=== PATIENT | female | born 2000 | race Caucasian/White ===

== ENCOUNTER 2018-09-28 20:08 | Emergency (ER) | payer BC, MEDICAID ==
--- NOTE | 2018-09-28 20:32 | EDM.PDOC ---
ED HPI GENERAL MEDICAL PROBLEM - General Chief Complaint: Head Injury Stated Complaint: HEAD INJURY Time Seen by Provider: 09/28/18 20:08 Source of Information: Reports: Patient History Limitations: Reports: No Limitations - History of Present Illness INITIAL COMMENTS - FREE TEXT/NARRATIVE: 17 y.o.w.cash came to the ed shortly after she was hit by platic tool? on the top her head by accident. No LOC, no Dizziness, no lightheadedness, no N/V/D or any other acute medical issues. Pt noticed a minor tender area at her mid aileen and thought she had a "concussion". 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 History: Social & Family History - Family History Family Medical History: Noncontributory - Caffeine Use Caffeine Use: Reports: None ED ROS GENERAL - Review of Systems Review Of Systems: See Below Constitutional: Reports: No Symptoms HEENT: Reports: No Symptoms Respiratory: Reports: No Symptoms Cardiovascular: Reports: No Symptoms Endocrine: Reports: No Symptoms GI/Abdominal: Reports: No Symptoms : Reports: No Symptoms Musculoskeletal: Reports: No Symptoms Skin: Reports: Lumps (minimal tenderness) Neurological: Reports: No Symptoms Psychiatric: Reports: No Symptoms Hematologic/Lymphatic: Reports: No Symptoms Immunologic: Reports: No Symptoms ED EXAM, HEAD INJURY - Physical Exam Exam: See Below Exam Limited By: No Limitations General Appearance: Alert, WD/WN, Mild Distress Head: Atraumatic, Normocephalic Eyes: Bilateral Eye: Normal Inspection Ears: Normal External Exam, Normal Canal, Hearing Grossly Normal, Normal TMs Nose: Normal Inspection, Normal Mucousa, No Blood Throat/Mouth: Normal Inspection, Normal Lips, Normal Teeth, Normal Gums, Normal Voice, No Airway Compromise Neck: Non-Tender, Full Range of Motion, Normal Alignment, Normal Inspection Respiratory: No Respiratory Distress, Lungs Clear, Normal Breath Sounds, No Accessory Muscle Use, Chest Non-Tender Cardiovascular: Normal Peripheral Pulses, Regular Rate, Rhythm, No Edema, No Gallop, No JVD, No Murmur GI/Abdominal Exam: Normal Bowel Sounds, Soft, Non-Tender, No Organomegaly, No Distention, No Abnormal Bruit, No Mass, Pelvis Stable (Female) Exam: Deferred Rectal (Female) Exam: Deferred Back Exam: Normal Inspection, Full Range of Motion Extremities: Normal Inspection, Normal Range of Motion, Non-Tender, No Pedal Edema, Normal Capillary Refill 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 on the top her head by accident. No LOC, no Dizziness, no lightheadedness, no N/V/D or any other acute medical issues. Pt noticed a minor tender area at her mid aileen and thought she had a "concussion". BP 116/85 Pulse ox 99% on RA Temp 98F RR 16 Pulse 92 PE: WNWD W F with a scalp hematoma, minimal. No open wound Impression: Scalp hematoma, minimal Tx: None in the ED Reexam: Pt did fine in the ed, refused to file for workman's comp Plan: D/C with instructions Departure - Departure Time of Disposition: 20:30 Disposition: Home, Self-Care 01 Condition: Good Clinical Impression: Scalp hematoma Qualifiers: Encounter type: initial encounter Qualified Code(s): S00.03XA - Contusion of scalp, initial encounter - Discharge Information Instructions: Head Injury, Adult, [id number] Referrals: Earle Tapia MD [Primary Care Provider] - Forms: ED Department Discharge Additional Instructions: Please apply ICE to the affected area, please take motrin for pain, please f/u, come back if your symptoms get worse acutely
== END 2018-09-28 20:40 | disposition home or self-care (01) ==
LOC: FB.ED 20:08
DX: S00.03XA Contusion of scalp, initial encounter (principal); W22.8XXA Striking against or struck by other objects, initial encounter
CPT/HCPCS: 99282

== ENCOUNTER 2019-07-08 23:33 | Emergency (ER) | payer SELFPAY ==
[2019-07-08] MEDS ORDERED: Sodium Chloride 0.9% 10 ML Syringe FLUSH PRN (23:59)
[2019-07-09] MEDS ORDERED: Ondansetron 4 MG/2 ML SDV IVPUSH ONE (00:02)
[2019-07-09] MEDS ORDERED: Sodium Chloride 0.9% 1,000 ML IV SCH (00:15)
[2019-07-09] MEDS ORDERED: Iopamidol 755 Mg/ML 100 ML Bottle IV ONE (00:57)
--- NOTE | 2019-07-09 02:11 | EDM.PDOC ---
ED HPI GENERAL MEDICAL PROBLEM - General Stated Complaint: ABDOMINAL PAIN; NAUSEA; CRAMPS Time Seen by Provider: 07/09/19 00:05 Source of Information: Reports: Patient History Limitations: Reports: No Limitations - History of Present Illness INITIAL COMMENTS - FREE TEXT/NARRATIVE: Patient presented to the ED because of RLQ pain,09/24/ with associated nausea but no vomiting. She denies any changes in bowel movements or urinary symptoms. 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 Denies: Vomiting : Reports: No Symptoms Musculoskeletal: Reports: No Symptoms Skin: Reports: No Symptoms Psychiatric: Reports: No Symptoms ED EXAM, GI/ABD - Physical Exam Exam: See Below Exam Limited By: No Limitations General Appearance: Alert, WD/WN, No Apparent Distress Nose: Normal Inspection, Normal Mucosa Throat/Mouth: Normal Inspection, Normal Lips, Normal Teeth Head: Atraumatic, Normocephalic Neck: Normal Inspection, Supple, Non-Tender, Full Range of Motion Respiratory/Chest: No Respiratory Distress, Lungs Clear, Normal Breath Sounds, No Accessory Muscle Use, Chest Non-Tender Cardiovascular: Normal Peripheral Pulses, Regular Rate, Rhythm, No Edema, No Gallop, No JVD, No Murmur GI/Abdominal Exam: Normal Bowel Sounds, Soft, No Distention, No Abnormal Bruit, Other (tenderness RLQ) Back Exam: Normal Inspection, Full Range of Motion. No: CVA Tenderness (R), CVA Tenderness (L) Extremities: Normal Inspection Course - Vital Signs Text/Narrative:: labs,CT abd/pevis result discussed with patient and with full understanding NS 1 L bolus Zofran 4 mg IV x1 refused pain meds - Orders/Labs/Meds Orders: Active Orders 24 hr Category Date Time Status Abdomen Pelvis w Cont [CT] Stat Exams 07/08/19 23:59 Taken Labs: Laboratory Tests 07/08/19 07/08/19 07/08/19 Range/Units 00:01 00:01 00:01 WBC 8.5 (4.5-12.0) X10-3/uL RBC 4.22 (3.23-5.20) x10(6)uL Hgb 13.7 (11.5-15.5) g/dL Hct 40.3 (30.0-51.3) % MCV 95.5 (80-96) fL MCH 32.5 (27.7-33.6) pg MCHC 34.0 (32.2-35.4) g/dL RDW 11.7 (11.5-15.5) % Plt Count 254 (125-369) X10(3)uL MPV 8.9 (7.4-10.4) fL Neut % (Auto) 67.2 (46-82) % Lymph % (Auto) 24.0 (13-37) % [place] % (Auto) 7.6 (4-12) % Eos % (Auto) 1 (1.0-5.0) % Baso % (Auto) 0 (0-2) % Neut # (Auto) 5.8 (1.6-8.3) # Lymph # (Auto) 2.0 (0.6-5.0) # [place] # (Auto) 0.6 (0.0-1.3) # Eos # (Auto) 0.1 (0.0-0.8) # Baso # (Auto) 0.0 (0.0-0.2) # Sodium 141 (135-145) mmol/L Potassium 3.5 (3.5-5.3) mmol/L Chloride 105 (100-110) mmol/L Carbon Dioxide 28 (21-32) mmol/L BUN 8 (7-18) mg/dL Creatinine 0.8 (0.55-1.02) mg/dL Est Cr Clr Drug Dosing TNP Estimated GFR (MDRD) > 60 (>60) BUN/Creatinine Ratio 10.0 (9-20) Glucose 89 (80-116) mg/dL Calcium 8.9 (8.6-10.2) mg/dL Total Bilirubin 0.4 (0.1-1.3) mg/dL AST 16 (5-25) IU/L ALT 19 (12-36) U/L Alkaline Phosphatase 71 (56-112) IU/L Total Protein 7.5 (6.0-8.0) g/dL Albumin 4.2 (3.5-5.2) g/dL Globulin 3.3 g/dL Albumin/Globulin Ratio 1.3 Amylase 50 (25-115) U/L Lipase 144 (73-393) U/L Urine Color (YELLOW) Urine Appearance (CLEAR) Urine pH (5.0-6.5) Ur Specific [place] (1.010-1.025) Urine Protein (NEGATIVE) mg/dL Urine Glucose (UA) (NORMAL) mg/dL Urine Ketones (NEGATIVE) mg/dL Urine Occult Blood (NEGATIVE) Urine Nitrite (NEGATIVE) Urine Bilirubin (NEGATIVE) Urine Urobilinogen (NEGATIVE) mg/dL Ur Leukocyte Esterase (NEGATIVE) Urine RBC (0-5) Urine WBC (0-5) Ur Squamous Epith Cells (NS,R,O) Urine Bacteria (NS) Urine HCG, Qual (NEGATIVE) 07/08/19 07/08/19 Range/Units 00:20 00:20 WBC (4.5-12.0) X10-3/uL RBC (3.23-5.20) x10(6)uL Hgb (11.5-15.5) g/dL Hct (30.0-51.3) % MCV (80-96) fL MCH (27.7-33.6) pg MCHC (32.2-35.4) g/dL RDW (11.5-15.5) % Plt Count (125-369) X10(3)uL MPV (7.4-10.4) fL Neut % (Auto) (46-82) % Lymph % (Auto) (13-37) % [place] % (Auto) (4-12) % Eos % (Auto) (1.0-5.0) % Baso % (Auto) (0-2) % Neut # (Auto) (1.6-8.3) # Lymph # (Auto) (0.6-5.0) # [place] # (Auto) (0.0-1.3) # Eos # (Auto) (0.0-0.8) # Baso # (Auto) (0.0-0.2) # Sodium (135-145) mmol/L Potassium (3.5-5.3) mmol/L Chloride (100-110) mmol/L Carbon Dioxide (21-32) mmol/L BUN (7-18) mg/dL Creatinine (0.55-1.02) mg/dL Est Cr Clr Drug Dosing Estimated GFR (MDRD) (>60) BUN/Creatinine Ratio (9-20) Glucose (80-116) mg/dL Calcium (8.6-10.2) mg/dL Total Bilirubin (0.1-1.3) mg/dL AST (5-25) IU/L ALT (12-36) U/L Alkaline Phosphatase (56-112) IU/L Total Protein (6.0-8.0) g/dL Albumin (3.5-5.2) g/dL Globulin g/dL Albumin/Globulin Ratio Amylase (25-115) U/L Lipase (73-393) U/L Urine Color Yellow (YELLOW) Urine Appearance Slightly cloudy (CLEAR) Urine pH 7.0 H (5.0-6.5) Ur Specific [place] 1.015 (1.010-1.025) Urine Protein Negative (NEGATIVE) mg/dL Urine Glucose (UA) Normal (NORMAL) mg/dL Urine Ketones Negative (NEGATIVE) mg/dL Urine Occult Blood Negative (NEGATIVE) Urine Nitrite Negative (NEGATIVE) Urine Bilirubin Negative (NEGATIVE) Urine Urobilinogen Normal (NEGATIVE) mg/dL Ur Leukocyte Esterase Negative (NEGATIVE) Urine RBC 0-5 (0-5) Urine WBC 0-5 (0-5) Ur Squamous Epith Cells Few H (NS,R,O) Urine Bacteria Few H (NS) Urine HCG, Qual Negative (NEGATIVE) Meds: Medications Discontinued Medications Generic Name Dose Route Start Last Admin Trade Name Freq PRN Reason Stop Dose Admin Sodium Chloride 1,000 mls @ 999 mls/hr 07/09/19 00:15 Normal Saline IV ASDIRECTED GLENNA Iopamidol 100 ml 07/09/19 00:57 07/09/19 01:07 Isovue-370 (76%) IV 07/09/19 00:58 77 ml . DIRECTED ONE Administration Ondansetron HCl 4 mg 07/09/19 00:02 07/09/19 00:40 Zofran IVPUSH 07/09/19 00:03 4 mg ONETIME ONE Administration Sodium Chloride 10 ml 07/08/19 23:59 Saline Flush FLUSH ASDIRECTED PRN Keep Vein Open Departure - Departure Time of Disposition: 02:10 Disposition: Home, Self-Care 01 Condition: Good Clinical Impression: Mica - Discharge Information Instructions: iMca [id number] Referrals: Juli Joseph NP [Primary Care Provider] - Forms: ED Department Discharge Additional Instructions: please read discharge instructions ovulation pain take ibuprofen 800 mg with tylenol 1000 mg every 8 hours as needed for pain follow up as needed - My Orders Last 24 Hours: My Active Orders 07/08/19 23:59 Abdomen Pelvis w Cont [CT] Stat - Assessment/Plan Last 24 Hours: My Active Orders 07/08/19 23:59 Abdomen Pelvis w Cont [CT] Stat
== END 2019-07-09 02:20 | disposition home or self-care (01) ==
LOC: FB.ED 23:33
DX: N94.0 Mittelschmerz (principal)
CPT/HCPCS: 36415; 74177; 80053; 81001; 81025; 82150; 83690; 85025; 96361; 96374; 99284; J2405; J7030; Q9967

== ENCOUNTER 2020-01-21 10:29 | Emergency (ER) | payer OTHER ==
--- NOTE | 2020-01-21 10:40 | EDM.PDOC ---
ED HPI GENERAL MEDICAL PROBLEM - General Stated Complaint: RT MIDDLE FINGER INJURY Time Seen by Provider: 01/21/20 11:00 Source of Information: Reports: Patient History Limitations: Reports: No Limitations - History of Present Illness INITIAL COMMENTS - FREE TEXT/NARRATIVE: Presented to the ER with crush injury to the right middle finger. Reports that she sustained injury at work. Rates pain as 5/10. Sustained hematoma to the Nail bed. No other associated injuries. Presented to the ER for further evaluation. 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: Social & Family History - Family History Family Medical History: Noncontributory - Caffeine Use Caffeine Use: Reports: None ED ROS GENERAL - Review of Systems Review Of Systems: See Below Constitutional: Reports: No Symptoms HEENT: Reports: No Symptoms Respiratory: Reports: No Symptoms Cardiovascular: Reports: No Symptoms Endocrine: Reports: No Symptoms GI/Abdominal: Reports: No Symptoms : Reports: No Symptoms Musculoskeletal: Reports: Other (Crush injury right middle finger) Skin: Reports: No Symptoms Neurological: Reports: No Symptoms Psychiatric: Reports: No Symptoms Hematologic/Lymphatic: Reports: No Symptoms ED EXAM, GENERAL - Physical Exam Exam: See Below Exam Limited By: No Limitations General Appearance: Alert, WD/WN, No Apparent Distress Eye Exam: Bilateral Eye: EOMI, PERRL Ear Exam: Bilateral Ear: Auricle Normal Nose: Normal Inspection, Normal Mucosa, No Blood Throat/Mouth: Normal Inspection, Normal Lips, Normal Teeth, Normal Oropharynx Head: Atraumatic, Normocephalic Neck: Normal Inspection, Supple, Non-Tender Respiratory/Chest: No Respiratory Distress, Lungs Clear, Normal Breath Sounds Cardiovascular: Normal Peripheral Pulses, Regular Rate, Rhythm, No JVD GI/Abdominal: Normal Bowel Sounds, Soft, Non-Tender, No Organomegaly Back Exam: Normal Inspection, Full Range of Motion Extremities: Normal Inspection, Normal Range of Motion, Non-Tender, Other ( Right middle finger -- crush injury distal aspect of the right middle finger) Neurological: Alert, Oriented, CN II-XII Intact, Normal Cognition Psychiatric: Normal Affect, Normal Mood Skin Exam: Warm Lymphatic: No Adenopathy ED GENERAL MEDICAL PROCEDURES - Additional/Other Procedure(s) Other (Free Text) Procedure(s): Procedure -- Nail trephination for hematoma evacuation. >>> Consent obtained Right middle finger cleaned and draped. Cautery used to release hematoma under the Nail bed. Patient tolerated procedure well. Course - Vital Signs Last Recorded V/S: Last Vital Signs Temp 36.9 C 01/21/20 10:29 Pulse 98 01/21/20 10:29 Resp 16 01/21/20 10:29 BP 115/73 01/21/20 10:29 Pulse Ox 99 01/21/20 10:29 - Orders/Labs/Meds Orders: Active Orders 24 hr Category Date Time Status Fingers Third Digit Rt F7 [CR] Stat Exams 01/21/20 10:53 Taken Departure - Departure Time of Disposition: 11:35 Disposition: DC[facility] 05 Condition: Good Clinical Impression: Crush injury to finger - Discharge Information Instructions: Jammed Finger Referrals: Juli Joseph NP [Primary Care Provider] - Forms: ED Department Discharge Additional Instructions: Follow with PCP Ibuprofen for pain Return if symptoms worsen Call your Physician or Return to Emergency Department if: * Your condition worsens in any way. * You develop fever greater than 100.4. * You have vomitting that does not stop with medications. * You have pain that is not controlled with medications. Sepsis Event Note - Focused Exam Vital Signs: Vital Signs Temp Pulse Resp BP Pulse Ox 01/21/20 10:29 36.9 C 98 16 115/73 99 Date Exam was Performed: 01/21/20 Time Exam was Performed: 11:46 - Problem List & Annotations (1) Crush injury to finger SNOMED Code(s): 52454499 Code(s): S67.10XA - CRUSHING INJURY OF UNSPECIFIED FINGER(S), INITIAL ENCOUNTER Status: Acute Current Visit: Yes - Problem List Review Problem List Initiated/Reviewed/Updated: Yes - My Orders Last 24 Hours: My Active Orders 01/21/20 10:53 Fingers Third Digit Rt F7 [CR] Stat - Assessment/Plan Last 24 Hours: My Active Orders 01/21/20 10:53 Fingers Third Digit Rt F7 [CR] Stat
--- NOTE | 2020-01-21 13:36 | CR ---
INDICATION: Crushing injury tip of right third finger. RIGHT THIRD FINGER: Three views of the right third finger revealed what appears to be a hairline fracture of the distal portion of the ungual tuft- anatomic position and alignment. No other bone or joint abnormality was identified. MTDD
== END 2020-01-21 12:00 | disposition home or self-care (01) ==
LOC: FB.ED 10:29
DX: S67.192A Crushing injury of right middle finger, initial encounter (principal); W23.0XXA Caught, crushed, jammed, or pinched between moving objects, initial encounter; Y99.0 Civilian activity done for income or pay
CPT/HCPCS: 11740; 73140-F7; 99000; 99284-25

== ENCOUNTER 2020-09-04 08:52 | Emergency (ER) | payer OTHER ==
--- NOTE | 2020-09-04 09:07 | EDM.PDOC ---
ED HPI GENERAL MEDICAL PROBLEM - General Stated Complaint: SOB, KIDNEY STONES Time Seen by Provider: 09/04/20 09:05 Source of Information: Reports: Patient History Limitations: Reports: No Limitations - History of Present Illness INITIAL COMMENTS - FREE TEXT/NARRATIVE: 19-year-old female who reports beginning last , she began to have generalized malaise, headache, diffuse abdominal pain and left mid back pain. She also reports that she had a low-grade fever with a temp of 100F. He reports that her symptoms have been worse over time. She has had some nausea but no vomiting. She is currently rating the pain in her left mid back and abdomen as a 1/10. It is a sharp and aching type pain. It does not appear to radiate. She has had no dysuria or hematuria. She was seen at [facility] in [place] yesterday and had blood tests and a urine test performed. She was told that she most probably had a kidney stone and was placed on Flomax. I did receive copies of the labs that were performed yesterday and I reviewed them she had a normal CBC, normal serum electrolytes and a normal BUN and creatinine. Her LFTs are normal. The urinalysis showed no definite evidence of infection beginning today she also reports that she is feeling somewhat short of breath. She has had no cough. No nasal congestion. No sore throat. She does reports that her left mid back is sensitive and yesterday To her in her left mid back, she reports it was very painful. She is having no persisting fever. She does report that she has been eating and drinking normally. She was told that if her pain failed to improve that she was to go to the emergency department and she would most likely need to have a CAT scan performed. There are no other associated signs or symptoms. There are no other modifying factors. Onset: Other (Last ) Duration: Getting Worse Location: Reports: Abdomen, Back Quality: Reports: Ache, Sharp, Stabbing Severity: Mild Improves with: Reports: None Worsens with: Reports: Other (Palpation) Context: Reports: Other Associated Symptoms: Reports: No Other Symptoms (Except as above.) Treatments [employer]CH[employer]IC: Reports: Other Medication(s) (Flomax described yesterday for her.) - Related Data Allergies Allergy/AdvReac Type Severity Reaction Status Date / Time No Known Allergies Allergy Verified 09/04/20 10:00 Home Meds: Home Meds Ondansetron [Zofran ODT] 4 mg PO Q6H PRN #8 tab.dis 09/04/20 [Rx] Sulfamethoxazole/Trimethoprim [Bactrim Ds Tablet] 1 each PO BID #20 tablet 09/04/20 [Rx] Past Medical History - Past Health History Medical/Surgical History: Denies Medical/Surgical History [employer]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 Social & Family History - Tobacco Use Tobacco Use Status *Q: Current Every Day Tobacco User - Caffeine Use Caffeine Use: Reports: None - Alcohol Use Alcohol Use History: Yes Alcohol Use Frequency: Rarely - Living Situation & Occupation Living situation: Reports: Single Occupation: Employed (She works at [employer].) ED ROS GENERAL - Review of Systems Review Of Systems: See Below Constitutional: Reports: Fever (History of fever. None today.) HEENT: Reports: No Symptoms Respiratory: Reports: Shortness of Breath (This began today.). Denies: Pleuritic Chest Pain, Cough, Hemoptysis Cardiovascular: Reports: No Symptoms Endocrine: Reports: No Symptoms GI/Abdominal: Reports: Abdominal Pain, Nausea. Denies: Vomiting : Reports: Flank Pain (Left) Musculoskeletal: Reports: Back Pain Skin: Reports: No Symptoms Neurological: Reports: No Symptoms Psychiatric: Reports: No Symptoms Hematologic/Lymphatic: Reports: No Symptoms Immunologic: Reports: No Symptoms ED EXAM, GENERAL - Physical Exam Exam: See Below Exam Limited By: No Limitations General Appearance: Alert, WD/WN, No Apparent Distress Eye Exam: Bilateral Eye: EOMI, Normal Inspection Ears: Normal External Exam, Hearing Grossly Normal Ear Exam: Bilateral Ear: Auricle Normal Nose: Normal Inspection, Normal Mucosa, No Blood Throat/Mouth: Normal Inspection, Normal Lips, Normal Oropharynx, Normal Voice, No Airway Compromise Head: Atraumatic, Normocephalic Neck: Normal Inspection, Supple, Non-Tender, Full Range of Motion Respiratory/Chest: No Respiratory Distress, Lungs Clear, Normal Breath Sounds, No Accessory Muscle Use, Chest Non-Tender Cardiovascular: Normal Peripheral Pulses, Regular Rate, Rhythm, No Murmur Peripheral Pulses: 2+: Radial (L), Radial (R) GI/Abdominal: Normal Bowel Sounds, Soft, Non-Tender, No Mass Back Exam: Normal Inspection, Full Range of Motion. No: CVA Tenderness (R), CVA Tenderness (L) Extremities: Normal Inspection, Normal Range of Motion, Non-Tender, Normal Capillary Refill, No Pedal Edema Neurological: Alert, Oriented, CN II-XII Intact, Normal Cognition, No Motor/Sensory Deficits Skin Exam: Warm, Dry, Intact, Normal Color, No Rash Lymphatic: No Adenopathy Course - Vital Signs Last Recorded V/S: Last Vital Signs Temp 36.4 C 09/04/20 08:52 Pulse 75 09/04/20 08:52 Resp 16 09/04/20 08:52 BP 122/76 09/04/20 08:52 Pulse Ox 100 09/04/20 08:52 - Orders/Labs/Meds Orders: Active Orders 24 hr Category Date Time Status Abdomen Pelvis wo Cont [CT] Stat Exams 09/04/20 10:41 Ordered CULTURE URINE [RM] Stat Lab 09/04/20 09:27 Received Labs: Laboratory Tests 09/04/20 09/04/20 09/04/20 Range/Units 09:27 09:27 09:55 D-Dimer, Quantitative 0.22 (0.0-0.59) mg/LFEU Lipase (73-393) U/L Urine Color Yellow (YELLOW) Urine Appearance Slightly cloudy (CLEAR) Urine pH 6.0 (5.0-6.5) Ur Specific [place] 1.020 (1.010-1.025) Urine Protein Negative (NEGATIVE) mg/dL Urine Glucose (UA) Normal (NORMAL) mg/dL Urine Ketones Negative (NEGATIVE) mg/dL Urine Occult Blood Negative (NEGATIVE) Urine Nitrite Negative (NEGATIVE) Urine Bilirubin Negative (NEGATIVE) Urine Urobilinogen 1 H (NEGATIVE) mg/dL Ur Leukocyte Esterase Large H (NEGATIVE) Urine WBC >100 H (0-5) Ur Squamous Epith Cells Few H (NS,R,O) Urine Bacteria Many H (NS) Urine HCG, Qual Negative (NEGATIVE) 09/04/20 Range/Units 09:55 D-Dimer, Quantitative (0.0-0.59) mg/LFEU Lipase 136 (73-393) U/L Urine Color (YELLOW) Urine Appearance (CLEAR) Urine pH (5.0-6.5) Ur Specific [place] (1.010-1.025) Urine Protein (NEGATIVE) mg/dL Urine Glucose (UA) (NORMAL) mg/dL Urine Ketones (NEGATIVE) mg/dL Urine Occult Blood (NEGATIVE) Urine Nitrite (NEGATIVE) Urine Bilirubin (NEGATIVE) Urine Urobilinogen (NEGATIVE) mg/dL Ur Leukocyte Esterase (NEGATIVE) Urine WBC (0-5) Ur Squamous Epith Cells (NS,R,O) Urine Bacteria (NS) Urine HCG, Qual (NEGATIVE) Meds: Medications Discontinued Medications Generic Name Dose Route Start Last Admin Trade Name Freq PRN Reason Stop Dose Admin Ceftriaxone Sodium 1 gm 09/04/20 11:32 09/04/20 11:38 Rocephin IM 09/04/20 11:33 1 gm ONETIME ONE Administration - Radiology Interpretation Free Text/Narrative:: CT scan of abdomen and pelvis without IV contrast showed no definite acute abnormality per the radiologist. - Re-Assessments/Exams Free Text/Narrative Re-Assessment/Exam: 09/04/20 10:45: Patient has remained hemodynamically stable. She still has minimal pain. The d-dimer was normal. Lipase was normal. Urinalysis today did show greater than 100 white cells per high-power field which points toward this being a pyelonephritis. However, the concern for possible kidney stone, I will send the patient for CT scan of her abdomen and pelvis without IV contrast. Departure - Departure Time of Disposition: 11:48 Disposition: Home, Self-Care 01 Condition: Good Clinical Impression: Pyelonephritis - Discharge Information Prescriptions: Sulfamethoxazole/Trimethoprim [Bactrim Ds Tablet] 1 each PO BID #20 tablet Ondansetron [Zofran ODT] 4 mg PO Q6H PRN #8 tab.dis PRN Reason: Nausea/Vomiting Instructions: Pyelonephritis, Adult, [id number] Referrals: Juli Joseph NP [Primary Care Provider] - Additional Instructions: Your blood tests from yesterday were reassuringly normal. I did screen for blood clots by doing an additional blood tests today and that was normal as well. Your urine tests today showed evidence of a kidney infection. The CT scan of your abdomen and pelvis showed no acute abnormality and specifically there was no evidence of a kidney stone. I think that all of her symptoms are probably due to the kidney infection. I am placing you on antibiotics to treat this. You were given an antibiotic shot in the emergency department to begin your treatment increase your fluid intake. You can take Tylenol and ibuprofen as needed for any pain or fever that you have. Back to the emergency department for unrelenting vomiting, worsening pain, high fever or any other concerning sign or symptom. Sepsis Event Note (ED) - Focused Exam Vital Signs: Vital Signs Temp Pulse Resp BP Pulse Ox 09/04/20 08:52 36.4 C 75 16 122/76 100 - My Orders Last 24 Hours: My Active Orders 09/04/20 09:27 CULTURE URINE [RM] Stat 09/04/20 10:41 Abdomen Pelvis wo Cont [CT] Stat - Assessment/Plan Last 24 Hours: My Active Orders 09/04/20 09:27 CULTURE URINE [RM] Stat 09/04/20 10:41 Abdomen Pelvis wo Cont [CT] Stat
[2020-09-04] MEDS ORDERED: cefTRIAXone 1 GM Vial IM ONE (11:32)
[2020-09-04] MEDS ORDERED: Ondansetron 4 MG Tab.DIS PO ONE (11:51)
--- NOTE | 2020-09-04 13:47 | CT ---
INDICATION: Left mid back and flank pain-bilateral started yesterday. CT ABDOMEN AND PELVIS WITHOUT CONTRAST: Spiral 2.5 mm axial sections were obtained through the abdomen and pelvis without contrast, but coronal and sagittal reconstructions 09/04/2020-no comparisons. Total exam DLP was 297.02 mGy-cm. Lower lung ken and pleural spaces visualized appeared normal. The heart appeared normal in size. No pericardial effusion was seen. No evidence of renal calcinosis or obstructive uropathy was identified. No definite renal mass was seen. No evidence of bowel obstruction or peritonitis was identified. No definite abscess or free fluid collection. Organomegaly or mass lesion was not identified. The urinary bladder was unremarkable except for question of some very minimal thickening of the wall, which could be on the basis of cystitis, but should be correlated clinically. The upper abdominal organs were unremarkable. IMPRESSION: 1. Except for slight thickening of the wall of the urinary bladder, which could represent cystitis, normal CT of the abdomen and pelvis without contrast. Report was called to Dr. Beckman at 1147 hours 09/04/2020. [facility]
== END 2020-09-04 12:01 | disposition home or self-care (01) ==
LOC: FB.ED 08:52
DX: N12 Tubulo-interstitial nephritis, not specified as acute or chronic (principal); Z72.0 Tobacco use
CPT/HCPCS: 36415; 74176; 81001; 81025; 83690; 85379; 87086; 96372; 99284; A9270; J0696